=== PATIENT | female | born 1950 | race Caucasian/White ===

== ENCOUNTER 2018-11-29 15:14 | Observation (INO) | payer OTHER ==
[2018-11-29] MEDS ORDERED: CEFEPIME/SWI 2gm 2 GM/20 ML SYR IV ONE (16:45)
[2018-11-29] MEDS ORDERED: NA CHLORIDE 0.9% 1,000 ML ONE (16:53)
[2018-11-29] MEDS ORDERED: FAMOTIDINE 20 MG/2 ML VIAL IV ONE (16:53)
[2018-11-29 17:15] LABS: Absolute Lymphocytes (CBC) 1.3 K/uL (0.7-4.9); Absolute Monocytes 0.5 K/uL (0.1-1.3); Basophils % 0.6 % (0-1.3); Eosinophils % 1.4 % (0-4.4); Lymphocytes % 21.4 % (15.3-44.8); MPV 8.1 fL (7.6-11.3); Monocytes % 8.4 % (3.3-12.3); RBC Red Blood Cell Count 4.59 M/uL (3.86-4.86)
--- NOTE | 2018-11-29 17:21 | RAD REPORT ---
EXAM DESCRIPTION: RAD - Chest Single View - 11/29/2018 4:59 pm CLINICAL HISTORY: Cough COMPARISON: June 2014 TECHNIQUE: AP portable chest image was obtained 1656 hours . FINDINGS: Lung volumes are underinflated compared to the prior study. No dense consolidation. Lung m arkings in the left suprahilar region are fractionally increased over comparison. Shallow inspiration accentuates overall the interstitial pattern. Heart and vasculature are normal. No measurable pleura l effusion and no pneumothorax. No acute bony abnormality seen. No acute aortic findings suspected. IMPRESSION: Shallow inspiration film showing no dense consolidation or mass. Lung markings overall are increased more so in the left suprahilar region. Early left upper lobe infi ltrate is not excluded.
[2018-11-29 17:26] LABS: Protime INR 1.11
[2018-11-29 17:41] LABS: ALT/SGPT 25 U/L (12-78); AST/SGOT 28 U/L (15-37); Albumin 3.7 g/dL (3.4-5.0); Alkaline Phosphatase 80 U/L (45-117); BUN Blood Urea Nitrogen 12 mg/dL (7-18); Bicarbonate 28 mmol/L (21-32); Bilirubin Direct 0.2 mg/dL (0-0.2); Bilirubin Total 0.7 mg/dL (0.2-1.0); Glucose Level 103 mg/dL (74-106); Lipase 57 U/L (73-393); Magnesium 2.2 mg/dL (1.8-2.4); NT PRO-BNP 78 pg/mL (<125); Potassium 3.6 mmol/L (3.5-5.1); Protein, Total 7.5 g/dL (6.4-8.2); Sodium Level 140 mmol/L (136-145); Troponin (Emerg Dept Use Only) < 0.02 ng/mL (0.0-0.045)
--- NOTE | 2018-11-29 18:20 | RAD REPORT ---
EXAM DESCRIPTION: CT - Chest For Pe Angio - 11/29/2018 6:04 pm CLINICAL HISTORY: Chest pain, cough, fever, dyspnea COMPARISON: Chest films same date TECHNIQUE: Dynamically enhanced 3 mm thick images of the chest were obtained during administration o f approximately 150mL Isovue 370 IV contrast. Coronal and oblique MIP reconstruction images were gene rated and reviewed. Exam utilizes a protocol to evaluate the pulmonary arterial tree. All CT scans are performed using dose optimization technique as appropriate and may include automated exposure control or mA/KV adjustment according to patient size. FINDINGS: No pulmonary emboli are identified. The aorta as imaged shows no acute or suspicious finding. No pericardial thickening or effusion. No focal mass or consolidations seen. Scattered patchy airspace opacities are present in the left upp er lobe. Left upper and left lower lobe bronchial wall thickening is present. There are interstitial thickening changes in the lower left lung field. No pleural effusion or pleural thickening. No mediastinal or hilar suspicious masses. No chest wall masses or abnormal axillary lymphadenopathy. IMPRESSION: No pulmonary emboli identified. Left upper and left lower lobe interstitial pneumonia changes with patchy alveolar pneumonia changes in the left upper lobe.
--- NOTE | 2018-11-29 18:28 | ER ---
Nurse's Notes [facility] Name: Mignon Dickerson Age: 68 yrs Sex: Female : 1950 Arrival Date: 11/29/2018 Time: 15:16 Bed 25 Private MD: Diagnosis: Fever, unspecified;Pneumonia due to other specified bacteria-left upper and lower failed out patient treatment;Cough Presentation: 11/29 15:55 Presenting complaint: Child states: had throat dialated, same day headache, ch pain behind ears, sore throat. Dr. Vora gave her an IV on Saturday for dehydration, today just feeling worse. cough is getting worse, pain behind ears, fever. 101.5. Transition of care: patient was not received from another setting of care. Onset of symptoms was November 27, 2018. Risk Assessment: Do you want to hurt yourself or someone else? Patient reports no desire to harm self or others. Initial Sepsis Screen: Does the patient meet any 2 criteria? No. Patient's initial sepsis screen is negative. Does the patient have a suspected source of infection? No. Patient's initial sepsis screen is negative. Care prior to arrival: None. 15:55 Method Of Arrival: Ambulatory 15:55 Acuity: MARY ANN 3 ch Historical: - Allergies: 15:58 Ampicillin; 15:58 thorazine; 15:58 Compazine; 15:58 Codeine; ch - Home Meds: 15:58 Omeprazole Oral [Active]; ch - PMHx: 15:58 GERD; ch - PSHx: 15:58 Tonsillectomy; Tubal ligation; Cholecystectomy; Hernia repair; ch - Immunization history:: Adult Immunizations up to date, Flu vaccine is up to date. - Social history:: Smoking status: Patient/guardian denies using tobacco, Patient/guardian denies using alcohol, street drugs. - Ebola Screening: : Patient negative for fever greater than or equal to 101.5 degrees Fahrenheit, and additional compatible Ebola Virus Disease symptoms Patient denies exposure to infectious person Patient denies travel to an Ebola-affected area in the 21 days before illness onset No symptoms or risks identified at this time. - Family history:: not pertinent. Screenin:04 Abuse screen: Denies threats or abuse. Nutritional screening: On. Tuberculosis la1 screening: No symptoms or risk factors identified. Fall Risk None identified. Assessment: 16:30 General: Appears in no apparent distress. well nourished, Behavior is calm, la1 cooperative. Pain: Complains of pain in chest pain in cough, KAYLEEN post auricular pain. Neuro: Level of Consciousness is awake, alert, obeys commands, Oriented to person, place, time, situation. Cardiovascular: Capillary refill < 3 seconds Patient's skin is warm and dry. Respiratory: Airway is patent Respiratory effort is even, unlabored, Respiratory pattern is regular, symmetrical, Breath sounds with rales bilaterally. the patient has mild shortness of breath Parent/caregiver reports the patient having cough that is non-productive, dry, hacking, persistent. GI: No signs and/or symptoms were reported involving the gastrointestinal system. : No signs and/or symptoms were reported regarding the genitourinary system. EENT: Pinna with no deformity noted on left ear and right ear. 18:18 Reassessment: Patient appears in no apparent distress at this time. No changes from la1 previously documented assessment. Patient and/or family updated on plan of care and expected duration. Pain level reassessed. Vital Signs: 15:58 BP 142 / 61; Pulse 88; Resp 23; Temp 99.4; Pulse Ox 99% on R/A; Weight 96.16 kg; Height 5 ft. 4 in. (162.56 cm); Pain 8/10; 17:06 BP 135 / 87; Pulse 95; Pulse Ox 98% on R/A; la1 18:18 BP 136 / 62; Pulse 95; Resp 16; Pulse Ox 97% on R/A; la1 20:08 BP 123 / 61; Pulse 83; Resp 18; Pulse Ox 98% on R/A; la1 20:38 Temp 99.5(O); la1 15:58 Body Mass Index 36.39 (96.16 kg, 162.56 cm) ED Course: 15:16 Patient arrived in ED. as 15:57 Triage completed. 15:58 Arm band placed on left wrist. Patient placed in an exam room, on a stretcher. 16:03 Shar Pollard RN is Primary Nurse. la1 16:07 Reji Gary MD is Attending Physician. [facility] 16:56 X-ray completed. Portable x-ray completed in exam room. Patient tolerated procedure la2 well. 17:00 XRAY Chest (1 view) In Process Unspecified. EDMS 17:04 Bed in low position. Call light in reach. Side rails up X 1. playground monitor on. Pulse la1 ox on. NIBP on. 17:04 Inserted saline lock: 20 gauge in left antecubital area, using aseptic technique. Blood la1 collected. 17:[address] kw1 18:03 CT completed. Patient tolerated procedure well. Patient moved back from CT. kw1 18:04 CT Chest For PE Angio In Process Unspecified. EDMS 18:24 Jamaica Matute MD is Hospitalizing Provider. [facility] 18:32 CT completed. Patient tolerated procedure well. Patient moved back from CT. kw1 20:38 Patient admitted, IV remains in place. la1 20:48 No provider procedures requiring assistance completed. la1 Administered Medications: 17:05 Drug: Cefepime 2 grams Route: IVPB; Rate: 200 ml/hr; Infused Over: 30 mins; Site: left la1 antecubital; 18:35 Follow up: IV Status: Completed infusion la1 17:05 Drug: NS 0.9% 500 ml Route: IV; Rate: bolus; Site: left antecubital; la1 18:35 Follow up: IV Status: Completed infusion la1 17:05 Drug: NS 0.9% 1000 ml Route: IV; Rate: 125 ml/hr; Site: left antecubital; la1 18:36 Follow up: IV Status: Infusion continued upon admission la1 17:05 Drug: Pepcid 20 mg Route: IVP; Site: left antecubital; la1 18:19 Follow up: Response: No adverse reaction la1 18:28 Drug: levofloxacin 750 mg Volume: 150 ml; Route: IVPB; Infused Over: 90 mins; Site: la1 left antecubital; 20:24 Follow up: IV Status: Infusion continued upon admission la1 18:35 Drug: Dextromethorphan-Guaifenesin Liquid 10 mg-100 mg/5 mL 10 ml Route: PO; la1 19:44 Follow up: Response: No adverse reaction la1 Outcome: 18:26 Decision to Hospitalize by Provider. [facility] 20:48 Admitted to [facility] accompanied by tech, room 416, with chart. la1 20:48 Condition: stable 20:48 Instructed on the need for admit. 20:48 Patient left the ED. la1 Signatures: Dispatcher [employer] EDJeannie Hardin, Reji Pimentel RN, ch, MD MD cha Martinez, Amelia as Attema, Lee, RN RN la1 Batool Chicas2 Alisa Mendoza
--- NOTE | 2018-11-29 18:28 | EDPHYS ---
Physician Documentation [facility] Name: Mignon Dickerson Age: 68 yrs Sex: Female : 1950 Arrival Date: 11/29/2018 Time: 15:16 Bed 25 Private MD: Reji Duran HPI: 11/29 16:31 This 68 yrs old Female presents to ER via Ambulatory with complaints of sheng Fever, Cough, Ear Pain. 16:31 The patient reports fever, that was measured at 101.5 degrees Fahrenheit. Onset: The sheng symptoms/episode began/occurred 3 day(s) ago. Modifying factors: there are no obvious modifying factors. The patient has not experienced similar symptoms in the past. Historical: - Allergies: 15:58 Ampicillin; ch 15:58 thorazine; ch 15:58 Compazine; ch 15:58 Codeine; ch - Home Meds: 15:58 Omeprazole Oral [Active]; ch - PMHx: 15:58 GERD; ch - PSHx: 15:58 Tonsillectomy; Tubal ligation; Cholecystectomy; Hernia repair; ch - Immunization history:: Adult Immunizations up to date, Flu vaccine is up to date. - Social history:: Smoking status: Patient/guardian denies using tobacco, Patient/guardian denies using alcohol, street drugs. - Ebola Screening: : Patient negative for fever greater than or equal to 101.5 degrees Fahrenheit, and additional compatible Ebola Virus Disease symptoms Patient denies exposure to infectious person Patient denies travel to an Ebola-affected area in the 21 days before illness onset No symptoms or risks identified at this time. - Family history:: not pertinent. ROS: 16:32 Eyes: Negative for injury, pain, redness, and discharge, ENT: Negative for injury, sheng pain, and discharge, Neck: Negative for injury, pain, and swelling, Cardiovascular: Negative for chest pain, palpitations, and edema, Abdomen/GI: Negative for abdominal pain, nausea, vomiting, diarrhea, and constipation, Back: Negative for injury and pain, : Negative for injury, bleeding, discharge, and swelling, MS/Extremity: Negative for injury and deformity, Skin: Negative for injury, rash, and discoloration, Neuro: Negative for headache, weakness, numbness, tingling, and seizure, Psych: Negative for depression, anxiety, suicide ideation, homicidal ideation, and hallucinations, Allergy/Immunology: Negative for hives, rash, and allergies, Endocrine: Negative for neck swelling, polydipsia, polyuria, polyphagia, and marked weight changes, Hematologic/Lymphatic: Negative for swollen nodes, abnormal bleeding, and unusual bruising. 16:32 Cardiovascular: Positive for chest pain, with cough. 16:32 Respiratory: Positive for cough, shortness of breath, at rest. Exam: 16:32 Head/Face: Normocephalic, atraumatic. Eyes: Pupils equal round and reactive to light, sheng extra-ocular motions intact. Lids and lashes normal. Conjunctiva and sclera are non-icteric and not injected. Cornea within normal limits. Periorbital areas with no swelling, redness, or edema. ENT: Nares patent. No nasal discharge, no septal abnormalities noted. Tympanic membranes are normal and external auditory canals are clear. Oropharynx with no redness, swelling, or masses, exudates, or evidence of obstruction, uvula midline. Mucous membranes moist. Neck: Trachea midline, no thyromegaly or masses palpated, and no cervical lymphadenopathy. Supple, full range of motion without nuchal rigidity, or vertebral point tenderness. No Meningismus. Chest/axilla: Normal chest wall appearance and motion. Nontender with no deformity. No lesions are appreciated. Cardiovascular: Regular rate and rhythm with a normal S1 and S2. No gallops, murmurs, or rubs. Normal PMI, no JVD. No pulse deficits. Abdomen/GI: Soft, non-tender, with normal bowel sounds. No distension or tympany. No guarding or rebound. No evidence of tenderness throughout. Back: No spinal tenderness. No costovertebral tenderness. Full range of motion. Female : Normal external genitalia. Skin: Warm, dry with normal turgor. Normal color with no rashes, no lesions, and no evidence of cellulitis. MS/ Extremity: Pulses equal, no cyanosis. Neurovascular intact. Full, normal range of motion. Neuro: Awake and alert, GCS 15, oriented to person, place, time, and situation. Cranial nerves II-XII grossly intact. Motor strength 5/5 in all extremities. Sensory grossly intact. Cerebellar exam normal. Normal gait. Psych: Awake, alert, with orientation to person, place and time. Behavior, mood, and affect are within normal limits. 16:32 Constitutional: The patient appears in obvious distress, mildly distressed. 16:32 Respiratory: mild respiratory distress is noted, Respirations: normal, Breath sounds: bronchial sounds, decreased breath sounds, rhonchi, that are mild. Vital Signs: 15:58 BP 142 / 61; Pulse 88; Resp 23; Temp 99.4; Pulse Ox 99% on R/A; Weight 96.16 kg; Height ch 5 ft. 4 in. (162.56 cm); Pain 8/10; 17:06 BP 135 / 87; Pulse 95; Pulse Ox 98% on R/A; la1 18:18 BP 136 / 62; Pulse 95; Resp 16; Pulse Ox 97% on R/A; la1 20:08 BP 123 / 61; Pulse 83; Resp 18; Pulse Ox 98% on R/A; la1 20:38 Temp 99.5(O); la1 15:58 Body Mass Index 36.39 (96.16 kg, 162.56 cm) [employer]: 16:07 Patient medically screened. [facility] 16:32 Data reviewed: vital signs, nurses notes, lab test result(s), EKG, radiologic studies, [facility] CT scan, plain films. 11/29 16:30 Order name: Basic Metabolic Panel; Complete Time: 17:45 [facility] 11/29 16:30 Order name: CBC with Diff; Complete Time: 17:45 [facility] 11/29 16:30 Order name: LFT's; Complete Time: 17:45 [facility] 11/29 16:30 Order name: Magnesium; Complete Time: 17:45 [facility] 11/29 16:30 Order name: NT PRO-BNP; Complete Time: 17:45 [facility] 11/29 16:30 Order name: PT-INR; Complete Time: 17:45 [facility] 11/29 16:30 Order name: Troponin (emerg Dept Use Only); Complete Time: 17:45 [facility] 11/29 16:30 Order name: XRAY Chest (1 view); Complete Time: 17:45 [facility] 11/29 16:30 Order name: Lipase; Complete Time: 17:45 [facility] 11/29 16:30 Order name: Procalcitonin; Complete Time: 18:03 [facility] 11/29 16:30 Order name: Lactate; Complete Time: 17:45 [facility] 11/29 16:30 Order name: Urine Culture [facility] 11/29 16:30 Order name: Blood Culture Adult (2) [facility] 11/29 19:58 Order name: Influenza Screen (A EDMD 11/29 16:30 Order name: EKG; Complete Time: 16:31 [facility] 11/29 16:30 Order name: Cardiac monitoring; Complete Time: 17:05 [facility] 11/29 16:30 Order name: EKG - Nurse/Tech; Complete Time: 17:05 [facility] 11/29 16:30 Order name: IV Saline Lock; Complete Time: 17:06 [facility] 11/29 16:30 Order name: Labs collected and sent; Complete Time: 17:06 [facility] 11/29 16:30 Order name: O2 Per Protocol; Complete Time: 17:06 [facility] 11/29 16:30 Order name: O2 Sat Monitoring; Complete Time: 17:06 [facility] 11/29 16:30 Order name: CT Chest For PE Angio; Complete Time: 18:23 [facility] Administered Medications: 17:05 Drug: Cefepime 2 grams Route: IVPB; Rate: 200 ml/hr; Infused Over: 30 mins; Site: left la1 antecubital; 18:35 Follow up: IV Status: Completed infusion la1 17:05 Drug: NS 0.9% 500 ml Route: IV; Rate: bolus; Site: left antecubital; la1 18:35 Follow up: IV Status: Completed infusion la1 17:05 Drug: NS 0.9% 1000 ml Route: IV; Rate: 125 ml/hr; Site: left antecubital; la1 18:36 Follow up: IV Status: Infusion continued upon admission la1 17:05 Drug: Pepcid 20 mg Route: IVP; Site: left antecubital; la1 18:19 Follow up: Response: No adverse reaction la1 18:28 Drug: levofloxacin 750 mg Volume: 150 ml; Route: IVPB; Infused Over: 90 mins; Site: la1 left antecubital; 20:24 Follow up: IV Status: Infusion continued upon admission la1 18:35 Drug: Dextromethorphan-Guaifenesin Liquid 10 mg-100 mg/5 mL 10 ml Route: PO; la1 19:44 Follow up: Response: No adverse reaction la1 Disposition: 11/29/18 18:26 Hospitalization ordered by [place] Matute for Inpatient Admission. Preliminary diagnosis are Fever, unspecified, Pneumonia due to other specified bacteria - left upper and lower failed out patient treatment, Cough. - Bed requested for Telemetry/MedSurg (Inpatient). - Status is Inpatient Admission. la1 - Condition is Fair. - Problem is new. - Symptoms have improved. UTI on Admission? No Signatures: Dispatcher [employer] EDMS Jeannie Bartlett, RN Alisa Velázquez ch, RN RN kl Anderson, Corey, MD MD cha Attema, Lee, RN RN la1 Corrections: (The following items were deleted from the chart) 20:22 18:26 Hospitalization Ordered by Jamaica Matute MD for Inpatient Admission. Preliminary diagnosis is Fever, unspecified; Pneumonia due to other specified bacteria - left upper and lower failed out patient treatment; Cough. Bed requested for Telemetry/MedSurg (Inpatient). Status is Inpatient Admission. Condition is Fair. Problem is new. Symptoms have improved. UTI on Admission? No. sheng 20:48 20:22 11/29/2018 18:26 Hospitalization Ordered by Jamaica Matute MD for Inpatient la1 Admission. Preliminary diagnosis is Fever, unspecified; Pneumonia due to other specified bacteria - left upper and lower failed out patient treatment; Cough. Bed requested for Telemetry/MedSurg (Inpatient). Status is Inpatient Admission. Condition is Fair. Problem is new. Symptoms have improved. UTI on Admission? No. kl
[2018-11-29] MEDS ORDERED: Levofloxacin 750mg IV 750 MG/150 ML BAG IV ONE (18:32)
[2018-11-29] MEDS ORDERED: GUAIFENESIN/DM 5 ML UCUP ONE (18:42)
--- NOTE | 2018-11-29 20:10 | P.HP ---
Certification for Inpatient Patient admitted to: Observation With expected LOS: <2 Midnights Practitioner: I am a practitioner with admitting privileges, knowledge of patient current condition, hospital course, and medical plan of care. Services: Services provided to patient in accordance with Admission requirements found in Title 42 Section 412.3 of the Code of Federal Regulations Patient History Date of Service: 11/29/18 Reason for admission: pneumonia History of Present Illness: Ms Dickerson is a 68 years old woman with history of GERD, esophageal strictures, who had a esophageal dilatation done by Dr Vora about 3 days ago. Since so, she start with dry cough, associated with SOB. She also has had fever at home 101.5 F. She came to ED because her symptoms got worse. Lab work shows normal WBC count, normal lactate and procalcitonin. She is afebrile, O2 sat 99% on RA. CTA shows no PE but report left upper and lower lobe interstitial infiltrate concerning for early pneumonia. Allergies ampicillin Allergy (Verified 03/04/14 16:30) Rash prochlorperazine edisylate [From Compazine] Allergy (Verified 03/04/14 16:30) Anaphylaxis prochlorperazine maleate [From Compazine] Allergy (Verified 03/04/14 16:30) Anaphylaxis codeine Adverse Reaction (Verified 03/04/14 16:30) Nausea/Vomiting Home medications list reviewed: Yes - Past Medical/Surgical History -: GERD -: esophageal strictures -: esophageal dilatation - Family History Family History: Reviewed- Non-Contributory - Social History Smoking Status: Never smoker Alcohol use: No CD- Drugs: No Place of Residence: Home Review of Systems 10-point ROS is otherwise unremarkable Physical Examination - Physical Exam General: Alert, In no apparent distress HEENT: Atraumatic, PERRLA, Mucous membr. moist/pink, EOMI, Sclerae nonicteric Neck: Supple, 2+ carotid pulse no bruit, No LAD, Without JVD or thyroid abnormality Respiratory: Crackles/rales (left base crackles) Cardiovascular: Regular rate/rhythm, Normal S1 S2 Gastrointestinal: Normal bowel sounds, No tenderness Musculoskeletal: No tenderness Integumentary: No rashes Neurological: Normal speech, Normal strength at 5/5 x4 extr, Normal tone, Normal affect Lymphatics: No axilla or inguinal lymphadenopathy - Studies Laboratory Data (last 24 hrs) 11/29/18 16:40: PT 13.1 H, INR 1.11 11/29/18 16:40: WBC 5.8, Hgb 14.3, Hct 43.0, Plt Count 214 11/29/18 16:40: Sodium 140, Potassium 3.6, BUN 12, Creatinine 1.08, Glucose 103 , Magnesium 2.2, Total Bilirubin 0.7, AST 28, ALT 25, Alkaline Phosphatase 80, Lipase 57 L Assessment and Plan - Problems (Diagnosis) (1) Pneumonia Current Visit: Yes Status: Acute Qualifiers: Pneumonia type: due to unspecified organism Laterality: left Lung location: unspecified part of lung Qualified Code(s): J18.9 - Pneumonia, unspecified organism (2) Esophageal stricture Current Visit: Yes Status: Acute - Plan Will order influenza screening, start empiric ABX, continue breathing treatments. Follow up blood cultures. She is hemodynamically stable. - Advance Directives Does patient have a Living Will: No Does patient have a Durable POA for Healthcare: No - Code Status/Comfort Care Code Status Assessed: Yes Code Status: Full Code
[2018-11-29] MEDS ORDERED: AZITHROMYCIN IV 500 MG in NA CHLORIDE 0.9% 250 ML IVPB SCH (21:00)
[2018-11-29] MEDS: NA CHLORIDE 0.9% 1,000 ML IV SCH ×2 (21:09→22:20)
[2018-11-29] MEDS ORDERED: ALBUTEROL 2.5 MG/3 ML NEB SOL NEB PRN (21:09)
[2018-11-29] MEDS ORDERED: ONDANSETRON 4 MG/2 ML VIAL IV PRN (21:09)
[2018-11-29] MEDS ORDERED: IPRATROPIUM BROM 0.5MG/2.5ML NEB PRN (21:09)
--- NOTE | 2018-11-29 21:10 | EKG ---
Test Date: 2018-11-29 Test Time: 16:51:08 Battery Loader: LISSY MEASUREMENT RESULTS: Intervals: Rate: 91 RI: 134 QRSD: 80 QT: 362 QTc: 445 Speed: P: 24 RI: 134 QRS: 24 T: 60 INTERPRETIVE STATEMENTS: Normal sinus rhythm Normal ECG Compared to ECG 03/02/2002 10:57:00 No significant changes Electronically Signed On 11-29-18 21:08:55 [employer] CRIME PREVENTION by Tad Barth
[2018-11-30] MEDS ORDERED: AZITHROMYCIN 500 MG INJ IVPB ONE (00:08)
[2018-11-30] MEDS: guaiFENesin 100 MG/5 ML UCUP PO PRN ×2 (00:19→09:59)
[2018-11-30] MEDS ORDERED: NA CHLORIDE 0.9% 250 ML ONE (00:25)
[2018-11-30 05:07] LABS: Urine Appearance CLEAR; Urine Bilirubin NEGATIVE (NEG); Urine Blood NEGATIVE (NEG); Urine Color YELLOW; Urine Glucose NEGATIVE (NEG); Urine Protein NEGATIVE (NEG); Urine Specific Gravity >=1.030 (1.005-1.030); Urine Urobilinogen 0.2 mg/dL (0.2-1.0); Urine pH 5.5 (5.0-7.0)
[2018-11-30] MEDS: ACETAMINOPHEN 500 MG TAB PO PRN ×2 (05:12→09:59)
[2018-11-30 05:33] LABS: Urine Microscopic Reflex NO UMIC
[2018-11-30 05:58] LABS: Absolute Lymphocytes (CBC) 1.6 K/uL (0.7-4.9); Absolute Monocytes 0.5 K/uL (0.1-1.3); Absolute Neutrophil 3.2 K/uL (1.8-8.0); Basophils % 0.4 % (0-1.3); Eosinophils % 0.6 % (0-4.4); Hematocrit 40.2 % (36.0-45.0); Lymphocytes % 29.4 % (15.3-44.8); MPV 8.1 fL (7.6-11.3); Monocytes % 10.1 % (3.3-12.3); RBC Red Blood Cell Count 4.28 M/uL (3.86-4.86)
[2018-11-30 06:14] LABS: Potassium 3.8 mmol/L (3.5-5.1)
[2018-11-30] MEDS: NA CHLORIDE 0.9% 1,000 ML IV SCH (07:09)
[2018-11-30] MEDS ORDERED: ENOXAPARIN 40 MG/0.4 ML SQ SCH (09:00)
[2018-11-30] MEDS ORDERED: CEFTRIAXONE 1 GM/NS 50 ML 1 GM/50 ML BAG IV SCH (09:00)
[2018-11-30] MEDS ORDERED: POTASSIUM CL SA 10 MEQ TAB PO ONE (09:00)
[2018-11-30] MEDS ORDERED: CEFTRIAXONE/SWI 1gm 1 GM/10 ML SYR IVP SCH (09:00)
--- NOTE | 2018-11-30 12:55 | P.SSS ---
Patient History Date of Service: 11/30/18 Reason for admission: pneumonia History of Present Illness: Ms Tuan is a 68 years old woman with history of GERD, esophageal strictures, who had a esophageal dilatation done by Dr Vora about 3 days ago. Since so, she start with dry cough, associated with SOB. She also has had fever at home 101.5 F. She came to ED because her symptoms got worse. Lab work shows normal WBC count, normal lactate and procalcitonin. She is afebrile, O2 sat 99% on RA. CTA shows no PE but report left upper and lower lobe interstitial infiltrate concerning for early pneumonia. Allergies ampicillin Allergy (Verified 11/29/18 21:16) Rash prochlorperazine edisylate [From Compazine] Allergy (Verified 11/29/18 21:16) Anaphylaxis prochlorperazine maleate [From Compazine] Allergy (Verified 11/29/18 21:16) Anaphylaxis codeine Adverse Reaction (Verified 11/29/18 21:16) Nausea/Vomiting Home Medications: Omeprazole 1 tab PO 0630 11/29/18 Azithromycin [Zithromax] 500 mg PO DAILY #5 tablet 11/30/18 Fluticasone Propionate [Flonase Allergy Relief] 9.9 ml NS DAILY #1 spray.susp - Past Medical/Surgical History Has patient received pneumonia vaccine in the past: Yes Diabetic: No -: GERD -: esophageal strictures -: hiatal hernia -: esophageal dilatation - Family History Family History: Reviewed- Non-Contributory - Family History Father -: Heart disease, Diabetes Mother Notes: lauro's dse - Social History Smoking Status: Never smoker Alcohol use: No CD- Drugs: No Caffeine use: Yes Place of Residence: Home Review of Systems 10-point ROS is otherwise unremarkable Physical Examination - Vital Signs Temperature: 98.4 F Blood Pressure: 125/65 Pulse: 93 Respirations: 18 Pulse Ox (%): 94 - Physical Exam General: Alert, In no apparent distress HEENT: Atraumatic, PERRLA, Mucous membr. moist/pink, EOMI, Sclerae nonicteric Neck: Supple, 2+ carotid pulse no bruit, No LAD, Without JVD or thyroid abnormality Respiratory: Clear to auscultation bilaterally, Normal air movement Cardiovascular: Regular rate/rhythm, Normal S1 S2 Gastrointestinal: Normal bowel sounds, No tenderness Musculoskeletal: No tenderness Integumentary: No rashes Neurological: Normal gait, Normal speech, Normal strength at 5/5 x4 extr, Normal tone, Normal affect Lymphatics: No axilla or inguinal lymphadenopathy - Studies Laboratory Data (last 24 hrs) 11/29/18 16:40: PT 13.1 H, INR 1.11 11/29/18 16:40: WBC 5.8, Hgb 14.3, Hct 43.0, Plt Count 214 11/29/18 16:40: Sodium 140, Potassium 3.6, BUN 12, Creatinine 1.08, Glucose 103 , Magnesium 2.2, Total Bilirubin 0.7, AST 28, ALT 25, Alkaline Phosphatase 80, Lipase 57 L - Diagnosis (Problem(s)) (1) URI (upper respiratory infection) Status: Acute Qualifiers: URI type: unspecified URI Qualified Code(s): J06.9 - Acute upper respiratory infection, unspecified (2) Esophageal stricture Status: Acute Treatment Summary: Overall during the hospital stay patient remained stable Patient was initially admitted to the hospital for cough and congestion was was thought to be pneumonia on the chest x-ray. Patient had recent esophageal dilation done with GI in about 3 days before the admission after which she started having cough and congestion and thus decided to come to the ER. Patient had lab work done which was negative for any acute abnormality. White count was new within normal limits along with a pro calcitonin. Patient's symptoms are most likely secondary to upper respiratory infection secondary to viral illness. Patient was initially admitted to the hospital was prescribed IV fluids and antibiotics for presumed pneumonia. Patient had marked improvement in her symptoms and thus antibiotics were discontinued and IV fluids were discontinued. Patient then was discharged home under stable condition was asked to take Flonase along with the zithromax. Patient then was asked to follow up with primary care provider along with pulmonology in about 1- 2 days post discharge. - Disposition Disposition: ROUTINE DISCHARGE Condition: GOOD Diet: Regular Activity: Ad nathaniel
[2018-12-01] MEDS ORDERED: HOME MED 1 EA UNK (Omeprazole [Omeprazole] 1 TAB) PO SCH (06:30)
[2018-12-01] MEDS ORDERED: PANTOPRAZOLE 40MG TABLET PO SCH (06:30)
== END 2018-11-30 12:41 | disposition home or self-care (01) ==
LOC: ER 15:14 → ERHOLD 20:22 → 4TH 20:35
PROVIDERS: ADMIT Internal Medicine; ATTEND Internal Medicine
DX: J06.9 Acute upper respiratory infection, unspecified (principal); K22.2 Esophageal obstruction; K21.9 Gastro-esophageal reflux disease without esophagitis; Z88.0 Allergy status to penicillin
CPT/HCPCS: 96365; 93005; 87040 ×2; 87088; 85025 ×2; 80048 ×2; 36415; 83735; 85610; 80076; 83605; 81003; 84484; 83690; 84145; 83880; 87804 ×2; 71275; 71045; 94760 ×2; 96375; 99285; 96366; Q9967; J0456 ×2; J1650; J0692; J7030 ×3; J0696; G0378 ×2; 87086